=== PATIENT | male | born 1985 | race Caucasian/White ===

== ENCOUNTER 2019-10-25 14:40 | Emergency (ER) | payer MEDICAID ==
[~2019-10-25] VITALS: Ht 175.3 cm; Wt 83.9 kg
[2019-10-25 14:48] VITALS: BP_SYST 140
--- NOTE | 2019-10-25 14:52 | NUR ---
EKG BEING PERFORMED IN TRIAGE
--- NOTE | 2019-10-25 14:53 | NUR ---
Patient triaged and placed in waiting room. VSS and patient appears in no acute distress at this time. Accompanied by FRIEND, awaiting available bed, and MD notified of need for MSE.
--- NOTE | 2019-10-25 15:32 | NUR ---
PT AMBULATED TO ED 5
--- NOTE | 2019-10-25 15:45 | NUR ---
Patient arrived via POV with significant other. Patient AAOx4, and ambulatory with steady gait. Patient c/c of upper abdominal/epigastric pain. Patient rates pain at 8/10, sharp stabbing. Patient states he is feeling nauseated with episodes of vomiting. Patient also notes dark red stool for the past 2 years. Patient has not followed up with primary care physician for these occurances. Will continue to follow up and monitor.
[2019-10-25] MEDS ORDERED: ONDANSETRON HCL 4 MG/2 ML VIAL IVP ONE (16:15)
[2019-10-25] MEDS ORDERED: MAG HYDROX/AL HYDROX/SIMETH 30 ML, DICYCLOMINE HCL 20 MG, LIDOCAINE VISCOUS 2% 15ML (PO... PO ONE ×6 (16:15→18:30)
--- NOTE | 2019-10-25 16:39 | NUR ---
Patient given GI cocktail and zofran as ordered. While administering medications patient states he drank Moody and coke, also Tequila. Patient states intense pain. Vomiting x1, red in color. Patient states he does not drink daily, "more of a monthly binge drinking." He originally thought the pain was a hangover, but it has not subsided. Pain is persistent and sharp throbbing in nature.
[2019-10-25 16:40] LABS: BASOPHILS % (AUTO) 0.4 % (0.0-2.0); EOSINOPHILS % (AUTO) 0.1 % (0.0-4.0); HEMATOCRIT 48.5 % (36-54); HEMOGLOBIN 16.6 g/dL (14.0-18.0); LYMPHOCYTES # (AUTO) 0.9 K/uL (1.0-5.5); LYMPHOCYTES % (AUTO) 13.6 % (20.5-51.5); MEAN CORPUSCULAR HEMOGLOBIN 30 pg (27-31); MEAN CORPUSCULAR HGB CONC 34 % (32-36); MEAN CORPUSCULAR VOLUME 89 fL (79.0-98.0); MONOCYTES # (AUTO) 0.4 K/uL (0.0-1.0); MONOCYTES % (AUTO) 5.4 % (1.7-9.3); NEUTROPHILS # (AUTO) 5.5 K/uL (1.8-7.7); NEUTROPHILS % (AUTO) 80.5 % (40.0-70.0); PLATELET COUNT (AUTO) 254 K/uL (130-430); RED BLOOD CELL COUNT(AUTO) 5.46 MIL/uL (4.2-6.2); RED CELL DISTRIBUTION WIDTH 13.1 % (9.0-15.0); WHITE BLOOD COUNT (AUTO) 6.9 K/uL (4.8-10.8)
--- NOTE | 2019-10-25 16:41 | NUR ---
Patient given urinal for collection of specimen when able to.
[2019-10-25 16:53] LABS: PROTHROMBIN TIME 10.4 SECS (9.5-12.5)
[2019-10-25 17:04] LABS: CALCIUM 8.6 mg/dL (8.4-11.0); CREATININE 0.96 mg/dL (0.55-1.30); POTASSIUM 4.1 mmol/L (3.5-5.1)
--- NOTE | 2019-10-25 17:07 | NUR ---
Spoke with patient regarding pain. Patient states he is feeling much better, and his stomach is settling more.
[2019-10-25 17:08] LABS: ALBUMIN 4.5 g/dL (3.4-4.8); TOTAL BILIRUBIN 0.3 mg/dL (0.0-1.0)
[2019-10-25 18:26] VITALS: BP_SYST 132
--- NOTE | 2019-10-25 18:26 | NUR ---
Patient given written and verbal discharge instructions and verbalizes understanding. ER MD discussed with patient the results and treatment provided. Patient in stable condition. ID arm band removed. IV catheter removed intact and dressing applied, no active bleeding. Rx of Sucralafate, Ranitidine, and given. Patient educated on pain management and to follow up with PMD. Pain Scale 2/10. Opportunity for questions provided and answered. Medication side effect fact sheet provided.
== END 2019-10-25 18:26 | disposition home or self-care (01) ==
LOC: SED 14:40
DX: K29.20 Alcoholic gastritis without bleeding (principal); F10.10 Alcohol abuse, uncomplicated
CPT/HCPCS: 36415; 71045; 80053; 82150; 82550; 83605; 83690; 84484; 85025; 85610; 85730; 87040; 96374; 99284; G0481; G0482; J2001; J2405

== ENCOUNTER 2022-09-07 18:02 | Emergency (ER) | payer MEDICAID ==
[~2022-09-07] VITALS: Ht 177.8 cm; Wt 81.6 kg
[2022-09-07 18:28] VITALS: BP_SYST 120
[2022-09-07] MEDS ORDERED: ACET-73 PO (19:13)
[2022-09-07] MEDS ORDERED: IBUP-1969 PO (19:13)
[2022-09-07 19:31] VITALS: BP_SYST 121
== END 2022-09-07 19:31 | disposition home or self-care (01) ==
LOC: SED 18:02
DX: S93.492A Sprain of other ligament of left ankle, initial encounter (principal); M72.2 Plantar fascial fibromatosis; Z79.899 Other long term (current) drug therapy; V03.131A Pedestrian on standing electric scooter injured in collision with car, pick-up or van in traffic accident, initial encounter; Y93.89 Activity, other specified; Y92.89 Other specified places as the place of occurrence of the external cause; Y99.8 Other external cause status
CPT/HCPCS: 99284